=== PATIENT | female | born 1985 | race Caucasian/White ===

== ENCOUNTER 2020-01-11 23:08 | Emergency (ER) | payer BC, OTHER ==
[~2020-01-11] VITALS: Ht 152.4 cm; Wt 98.0 kg
[~2020-01-11 23:08] MED LIST: DULO60CA6 PO; LEVO50TA5 PO
[2020-01-11] MEDS: IV NORMAL SALINE 1000ML BAG 1,000 ML IV SCH (23:30)
--- NOTE | 2020-01-11 23:53 | PHYS DOC ---
Past Medical History Past Medical History: Depression Past Surgical History: Tubal ligation, Other Additional Past Surgical Histo: left eye Smoking Status: Never Smoker Alcohol Use: Occasionally General Adult EDM: Chief Complaint: SKIN PROBLEM HPI: HPI: Patient is a 34 year old female who presents with report of shortness of breath all day long and a rash that she just started noticing about an hour ago. She denies any itching. She states that is just red blotchy areas on her truncal region and proximal extremities. She denies any allergies to medications or anything else. Patient denies any lower externally pain but does indicate that she has chronic lower extremity swelling. She denies any personal or family history of DVT/PE. Patient denies any chest pain or fever.[] Review of Systems: Review of Systems: Constitutional: Denies fever or chills. [] Respiratory: Complains of shortness of breath. [] Cardiovascular: Denies chest pain. [] GI: Denies abdominal pain, nausea, vomiting, bloody stools or diarrhea. [] Neurologic: Denies headache, focal weakness or sensory changes. [] A full 10 point review of systems is been reviewed and is otherwise negative except as noted in history of present illness. Heart Score: Risk Factors: Risk Factors: DM, Current or recent (<one month) smoker, HTN, HLP, family history of CAD, obesity. Risk Scores: Score 0 - 3: 2.5% MACE over next 6 weeks - Discharge Home Score 4 - 6: 20.3% MACE over next 6 weeks - Admit for Clinical Observation Score 7 - 10: 72.7% MACE over next 6 weeks - Early Invasive Strategies Current Medications: Current Medications Medications (Trade) Dose Ordered Sig/Lester Start Time Stop Time Status Last Admin Dose Admin Diphenhydramine HCl (Benadryl) 25 mg 1X ONCE 01/12/20 00:00 01/12/20 00:01 UNV Methylprednisolone Sodium Succinate (SOLU-Medrol 125MG VIAL) 125 mg 1X ONCE 01/12/20 00:00 01/12/20 00:01 UNV Sodium Chloride 1,000 ml @ 1,000 mls/hr Q1H 01/11/20 23:30 01/12/20 00:29 Allergies: Allergies: Allergies Coded Allergies Type Severity Reaction Last Updated Verified No Known Drug Allergies 01/11/20 No Physical Exam: PE: Constitutional: Well developed, well nourished, no acute distress, non-toxic appearance. [] HENT: Normocephalic, atraumatic, bilateral external ears normal, oropharynx moist, no oral exudates, nose normal. [] Eyes: PERRLA, EOMI, conjunctiva normal, no discharge. [] Neck: Normal range of motion, no tenderness, supple, no stridor. [] Cardiovascular: Regular rate and rhythm[] Lungs & Thorax: Bilateral breath sounds clear to auscultation [] Abdomen: Bowel sounds normal, soft, no tenderness. [] Skin: Warm, dry, with patchy areas of erythema, with no other findings. [] Extremities: No tenderness, no cyanosis, no clubbing, ROM intact, with nonpitting edema. [] Neurologic: Alert and oriented X 3, no focal deficits noted. [] Current Patient Data: Vital Signs: Vital Signs Date Time Temp Pulse Resp B/P (MAP) Pulse Ox O2 Delivery O2 Flow Rate FiO2 /2/20 23:25 98.7 108 18 129/82 (98) 99 Room Air 98.7 EKG: EKG: [] Radiology/Procedures: Radiology/Procedures: [] Impression: PROCEDURE: PORTABLE CHEST 1V PORTABLE CHEST 1V Clinical Indication: Dyspnea Comparison: Two-view chest, 11/30/2019. Findings: The cardiomediastinal silhouette is normal. Lungs are clear. There is no pneumothorax. No pleural effusion is appreciated. No acute bone abnormality. IMPRESSION: No acute cardiopulmonary process. Electronically signed by: Fercho Call MD (01/11/2020 11:54 PM) [id number] Course & Med Decision Making: Course & Med Decision Making Pertinent Labs and Imaging studies reviewed. (See chart for details) [] Dragon Disclaimer: Dragon Disclaimer: This electronic medical record was generated, in whole or in part, using a voice recognition dictation system. Departure Departure Impression: Primary Impression: Shortness of breath Additional Impression: Rash and nonspecific skin eruption Disposition: 01 HOME, SELF-CARE Condition: STABLE Referrals: UNKNOWN PCP NAME (PCP) Patient Instructions: Rash, Shortness of Breath HARLAN DAVIDSON Jr. DO January 11, 2020 23:53
--- NOTE | 2020-01-11 23:57 | RAD ---
PORTABLE CHEST 1V Clinical Indication: Dyspnea Comparison: Two-view chest, 11/30/2019. Findings: The cardiomediastinal silhouette is normal. Lungs are clear. There is no pneumothorax. No pleural effusion is appreciated. No acute bone abnormality. IMPRESSION: No acute cardiopulmonary process. Electronically signed by: Fercho Call MD (01/11/2020 11:54 PM) [id number]
[2020-01-12] MEDS: methylPREDNISolone SOD SUCC PF 125 MG/2 ML VIAL. IV ONE (00:06)
[2020-01-12] MEDS: diphenhydrAMINE 50 MG/ML VIAL IVP ONE (00:08)
[2020-01-12 00:09] LABS: BASO # 0.1 x10^3/uL (0.0-0.2); BASO % 1 % (0-3); EOS # 0.5 x10^3/uL (0.0-0.7); EOS % 5 % (0-3); HEMATOCRIT 40.8 % (36.0-47.0); LYMPH # 3.1 x10^3/uL (1.0-4.8); LYMPH % 31 % (24-48); MEAN CORPUSCULAR HEMOGLOBIN 29 pg (25-35); MEAN CORPUSCULAR HGB CONC 34 g/dL (31-37); MEAN CORPUSCULAR VOLUME 85 fL (79-100); MONO # 0.8 x10^3/uL (0.0-1.1); MONO % 8 % (0-9); NEUT # 5.7 x10^3/uL (1.8-7.7); NEUT % 56 % (31-73); PLATELET COUNT 258 x10^3/uL (140-400); RED BLOOD COUNT 4.79 x10^6/uL (3.50-5.40); RED CELL DISTRIBUTION WIDTH 13.8 % (11.5-14.5); WHITE BLOOD COUNT 10.2 x10^3/uL (4.0-11.0)
[2020-01-12 00:18] LABS: CALCIUM 8.6 mg/dL (8.5-10.1); CREATININE 0.6 mg/dL (0.6-1.0); GFR 113.8; POTASSIUM 3.4 mmol/L (3.5-5.1)
[2020-01-12 00:24] LABS: ALBUMIN 3.3 g/dL (3.4-5.0); TOTAL BILIRUBIN 0.2 mg/dL (0.2-1.0); TOTAL PROTEIN 6.6 g/dL (6.4-8.2)
[2020-01-12 01:16] VITALS: BP 112/57
== END 2020-01-12 01:00 | disposition home or self-care (01) ==
LOC: ER 23:08
DX: R06.02 Shortness of breath (principal); R21 Rash and other nonspecific skin eruption; L53.9 Erythematous condition, unspecified; F32.9 Major depressive disorder, single episode, unspecified; Z98.51 Tubal ligation status; Z98.890 Other specified postprocedural states
CPT/HCPCS: 36415; 71045; 80053; 84484; 85025; 85379; 96374; 96375; 99284; J1200; J2930; J7030